=== PATIENT | male | born 1990 | race African-American/Black ===

== ENCOUNTER 2019-02-03 18:33 | Emergency (ER) | payer SELFPAY ==
[~2019-02-03] VITALS: Ht 182.9 cm; Wt 108.0 kg
[2019-02-03 19:58] LABS: BILIRUBIN,URINE NEGATIVE (NEG); CLARITY,URINE CLEAR; COLOR,URINE YELLOW; NITRITE,URINE NEGATIVE (NEG); PROTEIN,URINE NEGATIVE (NEG-TRACE)
[2019-02-03 19:59] LABS: BASO # 0.1 x10^3/uL (0.0-0.2); BASO % 1 % (0-3); EOS # 0.1 x10^3/uL (0.0-0.7); EOS % 1 % (0-3); HEMATOCRIT 36.1 % (39.0-53.0); HEMOGLOBIN 11.8 g/dL (13.0-17.5); LYMPH # 1.1 x10^3/uL (1.0-4.8); LYMPH % 19 % (24-48); MEAN CORPUSCULAR HEMOGLOBIN 26 pg (25-35); MEAN CORPUSCULAR HGB CONC 33 g/dL (31-37); MEAN CORPUSCULAR VOLUME 79 fL (79-100); MONO # 0.8 x10^3/uL (0.0-1.1); MONO % 14 % (0-9); NEUT % 65 % (31-73); PLATELET COUNT 266 x10^3/uL (140-400); RED BLOOD COUNT 4.57 x10^6/uL (4.30-5.70); RED CELL DISTRIBUTION WIDTH 20.2 % (11.5-14.5); WHITE BLOOD COUNT 6.1 x10^3/uL (4.0-11.0)
[2019-02-03] MEDS ORDERED: IV NORMAL SALINE 1000ML BAG 1,000 ML IV SCH (20:00)
[2019-02-03 20:07] LABS: AMORPHOUS SEDIMENT,UR PRESENT /HPF; BACTERIA,URINE 0 /HPF (0-FEW); RBC,URINE 0 /HPF (0-2); SQUAMOUS EPITHELIAL CELL,UR OCC /LPF; WBC,URINE RARE /HPF (0-4)
[2019-02-03 20:11] LABS: CALCIUM 9.5 mg/dL (8.5-10.1); CREATININE 1.1 mg/dL (0.7-1.3); GFR 94.5; POTASSIUM 3.9 mmol/L (3.5-5.1)
[2019-02-03] MEDS ORDERED: fentaNYL PF VIAL 100 MCG/2 ML VIAL IV ONE (20:15)
[2019-02-03] MEDS ORDERED: diphenhydrAMINE 50 MG/ML VIAL IVP ONE (20:15)
[2019-02-03 20:17] LABS: ALBUMIN 4.2 g/dL (3.4-5.0); TOTAL BILIRUBIN 0.5 mg/dL (0.2-1.0); TOTAL PROTEIN 8.5 g/dL (6.4-8.2)
[2019-02-03] MEDS ORDERED: IOHEXOL 300 MG/ML 100ML VIAL. IV ONE (20:30)
[2019-02-03] MEDS ORDERED: CONTRAST GIVEN. MC PRN (20:30)
[2019-02-03 20:33] LABS: ANISOCYTOSIS MOD; HYPOCHROMIA SLIGHT; PLT ESTIMATE ADEQUATE (ADEQUATE); POIKILOCYTOSIS SLIGHT
[2019-02-03 20:34] LABS: OVALOCYTES FEW; POLYCHROMASIA SLIGHT
[2019-02-03 20:35] LABS: HELMET CELLS OCC
--- NOTE | 2019-02-03 20:47 | RAD ---
PQRS Compliance Statement: One or more of the following individualized dose reduction techniques were utilized for this examination: 1. Automated exposure control 2. Adjustment of the mA and/or kV according to patient size 3. Use of iterative reconstruction technique CT ABD PELV W/ IV CONTRST ONLY Clinical Indication: Abdominal pain, nausea and vomiting. Comparison: None. Technique: Helical CT imaging of the abdomen and pelvis is performed after 75 cc of Omnipaque 300 IV contrast. Oral contrast not given. Findings: Lung bases are clear. Cardiac size normal. Gallbladder is contracted. The liver, spleen, pancreas, adrenal glands, abdominal aorta, and kidneys are normal. Stomach unremarkable. No dilated small bowel. Neda pouch is noted. Probable appendectomy. There is left periumbilical ostomy. Distal descending and sigmoid colon resection. No colon wall thickening is seen. No abdominal adenopathy or free fluid. Urinary bladder is normal. Prostate and seminal vesicles normal. No pelvic free fluid. Bilateral inguinal lymph nodes may be reactive. No acute bone abnormality. IMPRESSION: 1. No acute abdominal or pelvic abnormality. 2. Distal colon resection. Left periumbilical ostomy. Electronically signed by: Olivier Mitchell MD (02/03/2019 8:45 PM) [facility]
--- NOTE | 2019-02-03 20:57 | PHYS DOC ---
Past Medical History Past Medical History: Other Additional Past Medical Histor: Crohn's Past Surgical History: Colectomy Alcohol Use: None Drug Use: None Adult General Chief Complaint Chief Complaint: ABDOMINAL PAIN HPI HPI Patient is a 29 year old male who presents with new today states he tripped and fell on the floor from a standing position and onto his abdomen. Patient does have a colostomy. Patients complaining of mid abdominal pain states he's vomited 3 times since incident. States that sharp and it hurts especially with movement. He rates his pain 8 out of 10. His history of Crohn's disease. Review of Systems Review of Systems Constitutional: Denies fever or chills [] Eyes: Denies change in visual acuity, redness, or eye pain [] HENT: Denies nasal congestion or sore throat [] Respiratory: Denies cough or shortness of breath [] Cardiovascular: No additional information not addressed in HPI [] GI: abdominal pain, nausea, vomiting, denies bloody stools or diarrhea [] : Denies dysuria or hematuria [] Musculoskeletal: Denies back pain or joint pain [] Integument: Denies rash or skin lesions [] Neurologic: Denies headache, focal weakness or sensory changes [] Endocrine: Denies polyuria or polydipsia [] All other systems were reviewed and found to be within normal limits, except as documented in this note. Current Medications Current Medications Current Medications Medications (Trade) Dose Ordered Sig/Joselito Start Time Stop Time Status Last Admin Dose Admin Acetaminophen/ Hydrocodone Bitart (Lortab 5/325) 1 tab 1X ONCE 02/03/19 21:45 02/03/19 21:46 Diphenhydramine HCl (Benadryl) 25 mg 1X ONCE 02/03/19 20:15 02/03/19 20:16 DC 02/03/19 20:15 25 MG Fentanyl Citrate (Fentanyl 2ml Vial) 50 mcg 1X ONCE 02/03/19 20:15 02/03/19 20:16 DC 02/03/19 20:16 50 MCG Info (CONTRAST GIVEN -- Rx MONITORING) 1 each PRN DAILY PRN 02/03/19 20:30 02/05/19 20:29 Iohexol (Omnipaque 300 Mg/ml) 75 ml 1X ONCE 02/03/19 20:30 02/03/19 20:31 DC 02/03/19 20:27 75 ML Sodium Chloride 1,000 ml @ 1,000 mls/hr Q1H 02/03/19 20:00 02/03/19 20:59 DC 02/03/19 20:13 1,000 MLS/HR Allergies Allergies Allergies Coded Allergies Type Severity Reaction Last Updated Verified dicyclomine Allergy Intermediate Itching 02/03/19 Yes metoclopramide Allergy Intermediate Itching 02/03/19 Yes ondansetron Allergy Intermediate Itching 02/03/19 Yes tramadol Allergy Intermediate Itching 02/03/19 Yes Physical Exam Physical Exam Constitutional: Well developed, well nourished, no acute distress, non-toxic appearance. [] HENT: Normocephalic, atraumatic, bilateral external ears normal, oropharynx moist, no oral exudates, nose normal. [] Eyes: PERRLA, EOMI, conjunctiva normal, no discharge. [] Neck: Normal range of motion, no tenderness, supple, no stridor. [] Cardiovascular:Heart rate regular rhythm, no murmur [] Lungs & Thorax: Bilateral breath sounds clear to auscultation [] Abdomen: Bowel sounds normal, soft, mid tenderness, no masses, no pulsatile mass es. [] Skin: Warm, dry, no erythema, no rash. [] Back: No tenderness, no CVA tenderness. [] Extremities: No tenderness, no cyanosis, no clubbing, ROM intact, no edema. [] Neurologic: Alert and oriented X 3, normal motor function, normal sensory function, no focal deficits noted. [] Psychologic: Affect normal, judgement normal, mood normal. [] Current Patient Data Vital Signs Vital Signs Date Time Temp Pulse Resp B/P (MAP) Pulse Ox O2 Delivery O2 Flow Rate FiO2 02/03/19 20:35 72 153/82 (105) 99 Room Air 02/03/19 19:03 98.6 17 98.6 Lab Values Laboratory Tests Test 02/03/19 19:05 02/03/19 19:45 Urine Collection Type Unknown Urine Color Yellow Urine Clarity Clear Urine pH 7.0 Urine Specific Elmore 1.025 Urine Protein Negative mg/dL (NEG-TRACE) Urine Glucose (UA) Negative mg/dL (NEG) Urine Ketones (Stick) Negative mg/dL (NEG) Urine Blood Negative (NEG) Urine Nitrite Negative (NEG) Urine Bilirubin Negative (NEG) Urine Urobilinogen Dipstick 1.0 mg/dL (0.2 mg/dL) Urine Leukocyte Esterase Negative (NEG) Urine RBC 0 /HPF (0-2) Urine WBC Rare /HPF (0-4) Urine Squamous Epithelial Cells Occ /LPF Urine Amorphous Sediment Present /HPF Urine Bacteria 0 /HPF (0-FEW) White Blood Count 6.1 x10^3/uL (4.0-11.0) Red Blood Count 4.57 x10^6/uL (4.30-5.70) Hemoglobin 11.8 g/dL (13.0-17.5) L Hematocrit 36.1 % (39.0-53.0) L Mean Corpuscular Volume 79 fL (79-100) Mean Corpuscular Hemoglobin 26 pg (25-35) Mean Corpuscular Hemoglobin Concent 33 g/dL (31-37) Red Cell Distribution Width 20.2 % (11.5-14.5) H Platelet Count 266 x10^3/uL (140-400) Neutrophils (%) (Auto) 65 % (31-73) Lymphocytes (%) (Auto) 19 % (24-48) L Monocytes (%) (Auto) 14 % (0-9) H Eosinophils (%) (Auto) 1 % (0-3) Basophils (%) (Auto) 1 % (0-3) Neutrophils # (Auto) 4.0 x10^3/uL (1.8-7.7) Lymphocytes # (Auto) 1.1 x10^3/uL (1.0-4.8) Monocytes # (Auto) 0.8 x10^3/uL (0.0-1.1) Eosinophils # (Auto) 0.1 x10^3/uL (0.0-0.7) Basophils # (Auto) 0.1 x10^3/uL (0.0-0.2) Platelet Estimate Adequate (ADEQUATE) Polychromasia Slight Hypochromasia Slight Poikilocytosis Slight Anisocytosis Mod Ovalocytes Few Helmet Cells Occ Sodium Level 139 mmol/L (136-145) Potassium Level 3.9 mmol/L (3.5-5.1) Chloride Level 102 mmol/L (98-107) Carbon Dioxide Level 28 mmol/L (21-32) Anion Gap 9 (6-14) Blood Urea Nitrogen 17 mg/dL (8-26) Creatinine 1.1 mg/dL (0.7-1.3) Estimated GFR (Cockcroft-Gault) 94.5 BUN/Creatinine Ratio 15 (6-20) Glucose Level 65 mg/dL (70-99) L Calcium Level 9.5 mg/dL (8.5-10.1) Total Bilirubin 0.5 mg/dL (0.2-1.0) Aspartate Amino Transferase (AST) 23 U/L (15-37) Alanine Aminotransferase (ALT) 31 U/L (16-63) Alkaline Phosphatase 66 U/L (46-116) Total Protein 8.5 g/dL (6.4-8.2) H Albumin 4.2 g/dL (3.4-5.0) Albumin/Globulin Ratio 1.0 (1.0-1.7) Lipase 147 U/L (73-393) Laboratory Tests 02/03/19 19:45 Laboratory Tests 02/03/19 19:45 EKG EKG [] Radiology/Procedures Radiology/Procedures [] Impressions: [facility] [address] [place], [place] [id number] IMAGING REPORT Signed PATIENT: NOREEN MARS ACCOUNT: [id number] : 1990 LOCATION: ER AGE: 29 SEX: M EXAM STATUS: REG ER ORD. PHYSICIAN: ALEX MCCLOUD APRN REASON: abd pain, n, v PROCEDURE: CT ABD PELV W/ IV CONTRST ONLY PQRS Compliance Statement: One or more of the following individualized dose reduction techniques were utilized for this examination: 1. Automated exposure control 2. Adjustment of the mA and/or kV according to patient size 3. Use of iterative reconstruction technique CT ABD PELV W/ IV CONTRST ONLY Clinical Indication: Abdominal pain, nausea and vomiting. Comparison: None. Technique: Helical CT imaging of the abdomen and pelvis is performed after 75 cc of Omnipaque 300 IV contrast. Oral contrast not given. Findings: Lung bases are clear. Cardiac size normal. Gallbladder is contracted. The liver, spleen, pancreas, adrenal glands, abdominal aorta, and kidneys are normal. Stomach unremarkable. No dilated small bowel. Neda pouch is noted. Probable appendectomy. There is left periumbilical ostomy. Distal descending and sigmoid colon resection. No colon wall thickening is seen. No abdominal adenopathy or free fluid. Urinary bladder is normal. Prostate and seminal vesicles normal. No pelvic free fluid. Bilateral inguinal lymph nodes may be reactive. No acute bone abnormality. IMPRESSION: 1. No acute abdominal or pelvic abnormality. 2. Distal colon resection. Left periumbilical ostomy. Electronically signed by: Olivier Carney MD (02/03/2019 8:45 PM) [facility] DICTATED and SIGNED BY: OLIVIER CARNEY MD DATE: 02/03/192044 Course & Med Decision Making Course & Med Decision Making Patient is a 29 year old male who presents with new today states he tripped and fell on the floor from a standing position and onto his abdomen. Patient does have a colostomy. Patients complaining of mid abdominal pain states he's vomited 3 times since incident. States that sharp and it hurts especially with movement. He rates his pain 8 out of 10. His history of Crohn's disease. Alert and oriented. Speaks in full sentences. Ambulatory with a steady gait. Skin is pink warm and dry. Patient states that he thinks he saw some blood in his colostomy bag. Patient currently has a glove over his colostomy bag because he ran out. Patient states he usually takes Benadryl for nausea because he is al lergic to other nausea medications. Abdomen is slightly tender with palpation to the mid abdomen slightly to the side and below the colostomy bag. There is no bruising to the abdomen. Lungs are clear to auscultation all lobes. Skin is pink warm and dry. Vital signs within normal limits. Patient is given Benadryl for nausea and fentanyl for his pain. CT abdomen pelvis shows no acute findings. Patient likely has contusion from falling. Patient to follow-up with his primary care provider. I will send him home with some pain medication he can take Benadryl for his nausea. Dragon Disclaimer Dragon Disclaimer This electronic medical record was generated, in whole or in part, using a voice recognition dictation system. Departure Departure Impression: Primary Impression: Abdominal pain Additional Impression: Fall Disposition: HOME, SELF-CARE Condition: STABLE Referrals: NO PCP (PCP) Patient Instructions: Abdominal Pain (Nonspecific), Contusion, Fall Prevention and Home Safety Additional Instructions: Follow-up with her primary care provider. Take medication as prescribed. Scripts Hydrocodone/Apap 5-325 (NORCO 5-325 TABLET) 1 Each Tablet 1 TAB PO PRN Q6HRS PRN for PAIN, #10 TAB 0 Refills Prov: ALEX MCCLOUD APRN 02/03/19 Problem Qualifiers Primary Impression: Abdominal pain Abdominal location: periumbilical Qualified Codes: R10.33 - Periumbilical pain Additional Impression: Fall Encounter type: initial encounter Qualified Codes: W19.XXXA - Unspecified fall, initial encounter ALEX MCCLOUD CORRECTIONAL MANAGER Feb 03, 2019 20:57
[2019-02-03] MEDS ORDERED: HYDR-3164 PO (21:34)
[2019-02-03 21:35] VITALS: BP 145/94
[2019-02-03] MEDS ORDERED: HYDROcodone/APAP 5/325MG 1 TAB TABLET PO ONE (21:45)
== END 2019-02-03 21:57 | disposition home or self-care (01) ==
LOC: ER 18:33
DX: R10.33 Periumbilical pain (principal); R11.2 Nausea with vomiting, unspecified; Z90.49 Acquired absence of other specified parts of digestive tract; Z93.3 Colostomy status; Z88.5 Allergy status to narcotic agent; Z88.8 Allergy status to other drugs, medicaments and biological substances; W01.0XXA Fall on same level from slipping, tripping and stumbling without subsequent striking against object, initial encounter; Y93.89 Activity, other specified; Y92.89 Other specified places as the place of occurrence of the external cause; Y99.8 Other external cause status
CPT/HCPCS: 36415; 74177; 80053; 81001; 83690; 85025; 96361; 96374; 96375; 99285; J1200; J3010; J7030; Q9967